=== PATIENT | female | born 1990 | race Caucasian/White ===

== ENCOUNTER 2021-06-02 07:32 | Inpatient (IN) | payer OTHER ==
[~2021-06-02] VITALS: Ht 165.1 cm; Wt 76.7 kg
[2021-06-02 09:54] LABS: HCT 30.1 % (37.0-47.0); HGB 9.9 g/dl (12.5-16.0); MCH 27.4 pg (25.0-31.0); MCHC 32.9 g/dL (32.0-36.0); MCV 83.4 fL (78.0-100.0); MPV 9.2 fL (6.0-9.5); RBC 3.61 M/uL (4.20-5.40); RDW 16.4 % (11.5-14.0); WBC 11.5 K/uL (4.0-10.5)
[2021-06-02 10:08] LABS: BILIRUBIN NEGATIVE (NEGATIVE); BLOOD 2+ Ery/uL (NEGATIVE); CLARITY CLEAR (CLEAR); COLOR YELLOW (YELLOW); GLUCOSE (U) NORMAL (NORMAL); LEUKOCYTES NEGATIVE Leu/uL (NEGATIVE); NITRITE NEGATIVE (NEGATIVE); PROTEIN TRACE (LOW) mg/dL (NEGATIVE); pH 8.5 (5.0-9.0)
[2021-06-02 10:39] LABS: BACTERIA TRACE
[2021-06-02 10:40] LABS: MUCOUS TRACE
[2021-06-03 07:10] LABS: HCT 29.2 % (37.0-47.0); HGB 9.6 g/dl (12.5-16.0); MCH 27.7 pg (25.0-31.0); MCHC 32.9 g/dL (32.0-36.0); MCV 84.1 fL (78.0-100.0); MPV 9.6 fL (6.0-9.5); RBC 3.47 M/uL (4.20-5.40); RDW 16.6 % (11.5-14.0); WBC 14.7 K/uL (4.0-10.5)
== END 2021-06-04 14:12 | disposition home or self-care (01) | DRG 805 ==
LOC: FOB 07:32
PROVIDERS: ADMIT Obstetrics & Gynecology
PROC: 10E0XZZ Delivery of Products of Conception, External Approach (ICD-10-PCS; principal; 2021-06-02)
PROC: 0HQ9XZZ Repair Perineum Skin, External Approach (ICD-10-PCS; 2021-06-02)
PROC: 8E0ZXY6 Isolation (ICD-10-PCS; 2021-06-02)
DX: O42.013 Preterm premature rupture of membranes, onset of labor within 24 hours of rupture, third trimester (principal); U07.1 COVID-19; Z37.0 Single live birth; O60.14X0 Preterm labor third trimester with preterm delivery third trimester, not applicable or unspecified; O98.52 Other viral diseases complicating childbirth; O99.354 Diseases of the nervous system complicating childbirth; D62 Acute posthemorrhagic anemia; O99.12 Other diseases of the blood and blood-forming organs and certain disorders involving the immune mechanism complicating childbirth; D68.51 Activated protein C resistance; O99.02 Anemia complicating childbirth; G43.909 Migraine, unspecified, not intractable, without status migrainosus; Z3A.35 35 weeks gestation of pregnancy; O70.0 First degree perineal laceration during delivery; O99.344 Other mental disorders complicating childbirth; F41.9 Anxiety disorder, unspecified; F95.2 Tourette's disorder; O69.89X0 Labor and delivery complicated by other cord complications, not applicable or unspecified; Z79.82 Long term (current) use of aspirin
CPT/HCPCS: 36415; 81001; 84112; J0595; J0702; J2540; J2916; J3105; J7120; U0002